=== PATIENT | female | born 1945 | race Caucasian/White ===

== ENCOUNTER → 2017-04-02 | Outpatient (CLI) | payer OTHER ==
[~2017-04-02] MED LIST: ANT PO; ATOR-24 PO; ATV5X PO; CALC500C3 PO; CHOL2000 PO; CLR10 PO; FSMD/70 PO; GABA-112 PO; MAGN400T6 PO; METO25TA56 PO; MULT-506 PO; PARO1TAB27 PO; PRLSR20 PO; TRAM-10 PO; VITA400C15 PO; VITA400C49 PO
[2017-04-02 15:36] LABS: BASO % 0.6 %; BASO ABS # 0.04 K/uL (0-0.2); COMPLETE YES; IG% 0.1 %; LYMPH ABS # 1.26 K/uL (1.2-3.4); MEAN CELL VOLUME 93.3 fL (80-100); MEAN CORPUSCULAR HEMOGLOBIN 33.2 pg (25-34); MEAN CORPUSCULAR HGB CONC 35.6 g/dl (32-36); MEAN PLATELET VOLUME 10.3 fL (7.4-10.4); MONO % 6.4 %; NEUT % 71.9 %; PLATELET COUNT 225 K/uL (130-400); RED BLOOD COUNT 4.61 M/uL (4.2-5.4); WHITE BLOOD COUNT 7.01 K/uL (4.8-10.8)
[2017-04-02 15:45] LABS: PARTIAL THROMBOPLASTIN RATIO 1.1; PROTHROMBIN TIME (PATIENT) 10.5 SECONDS (9.0-12.0)
[2017-04-02 16:12] LABS: BLOOD UREA NITROGEN 22 mg/dl (7-18); BUN/CREATININE RATIO 29.4 (10-20); CALCIUM 9.7 mg/dl (8.5-10.1); CARBON DIOXIDE 29 mmol/L (21-32); CHLORIDE 101 mmol/L (98-107); CREATININE 0.75 mg/dl (0.60-1.20); GLUCOSE 97 mg/dl (70-99); SODIUM 140 mmol/L (136-145)
--- NOTE | 2017-04-02 16:16 | DIAGNOSTIC IMAGING REPORT ---
CHEST 2 VIEWS ROUTINE CLINICAL HISTORY: 71 years-old Female presenting with PRE OP TESTING, WENT TO LAB FIRST, SEND TO [facility]. TECHNIQUE: PA and lateral views of the chest were obtained. COMPARISON: 10/26/[address] from 10/05/2015. FINDINGS: Cardiomediastinal silhouette normal. Lungs and pleural spaces clear. Deformities of several anterior lower left ribs consistent with old fractures. Surgical clips project over the epigastrium. IMPRESSION: 1. No acute cardiopulmonary disease. Electronically signed by: Moses Champion M.D. 04/02/2017 4:14 PM Dictated Date/Time: 04/02/2017 4:13 PM
[2017-04-02 16:32] LABS: URINE APPEARANCE CLEAR (CLEAR); URINE BILIRUBIN NEG (NEG); URINE COLOR YELLOW; URINE NITRITE NEG (NEG); URINE SPECIFIC GRAVITY 1.027 (1.000-1.030); UROBILINOGEN NEG (NEG)
[2017-04-02 16:35] LABS: MANUAL MICROSCOPIC REQUIRED? NO; REVIEW REQ? NO
== END | disposition home or self-care (01) ==
LOC: C.LAB 14:45
PROVIDERS: ATTEND Physician Assistant
DX: Z01.812 Encounter for preprocedural laboratory examination (principal); Z01.810 Encounter for preprocedural cardiovascular examination

== ENCOUNTER 2017-04-08 06:49 | Observation (INO) | payer OTHER ==
[2017-04-04 08:20] VITALS: BMI 21.0
--- NOTE | 2017-04-05 12:29 | HISTORY & PHYSICAL EXAMINATION ---
DATE OF ADMISSION: 04/08/2017 PREOPERATIVE DIAGNOSIS: Left femur fracture. POSTOPERATIVE DIAGNOSIS: Same. HISTORY OF PRESENT ILLNESS: Evonne is a delightful patient. She has battled left femoral pain now for about 1.5 years. The Fosamax that she was taking led to a fracture of the femur. She has no fever, sweats, chills, moderate pain that has not subsided. She is a high potential but a complete fracture through the femoral shaft. PAST MEDICAL HISTORY: Arthritis, sciatica. No carcinoma. No kidney, liver issues. No hypertension, no COPD. MEDICATIONS: Metoprolol, Zocor, lorazepam, tramadol. PAST SURGICAL HISTORY: Hysterectomy, lumbar spine, cholecystectomy. ALLERGIES: Negative. REVIEW OF SYSTEMS: Denies any blurred vision, double vision, tinnitus, vertigo. Did have some teeth issues. Denies chest pain, palpitations. Denies shortness of breath, asthma, wheezing. No nausea, vomiting, urgency, frequency, dysuria. Her major complaints is musculoskeletal, left femur pain. OBJECTIVE: GENERAL: She is alert, oriented young lady. She is 5 feet 6 inches, 130 pounds. She is in no distress. VITAL SIGNS: Blood pressure 130/80, pulse of 80. HEENT: Normal. CARDIAC: Normal S1, S2, no S3. LUNGS: Clear. ABDOMEN: Soft, nontender. SKIN: Intact. Vascular structures intact. Images demonstrate a stress fracture, left femur. IMPRESSION: Otherwise, healthy young lady with a stress fracture, left femur. DISPOSITION: Includes IM liborio, left femur under general anesthetic at [facility].
[2017-04-08] VITALS (9 sets, daily range): BP systolic 88–138; BP diastolic 55–79; PULSE 59–102; TEMP 36.4–37.1; O2SAT 95–100; Ht 160 cm; Wt 54.5 kg
[~2017-04-08] VITALS: Ht 160 cm; Wt 54.5 kg
[~2017-04-08 06:49] MED LIST changes: -CALC500C3 PO; +CEFAZOLIN 2000MG IV PUSH 10 ML IV SCH; -FSMD/70 PO; +LACTATED RINGER'S 1000ML 1,000 ML IV SCH; +NSS 1000ML IV SCH; -VITA400C15 PO
[2017-04-08] MEDS ORDERED: BUPIVACAINE 0.5 % 5 MG/1 ML PF 10ML VIAL ONE (07:15)
[2017-04-08] MEDS ORDERED: CALC500C3 PO (07:54)
[2017-04-08] MEDS ORDERED: FENTANYL CITRATE INJ 50 MCG/1 ML 2 ML VIAL ONE (08:40)
[2017-04-08] MEDS ORDERED: MIDAZOLAM HCL 1 MG/ML 2ML VIAL ONE ×2 (08:40→09:25)
[2017-04-08] MEDS ORDERED: ATROPINE SULFATE 0.1 MG/ML 5ML SYR IV PRN (09:00)
[2017-04-08] MEDS ORDERED: HYDROmorphone INJ 1 MG/ML SYR IV PRN ×2 (09:00→19:45)
[2017-04-08] MEDS ORDERED: LABETALOL HCL IV 5 MG/ML 20ML IV PRN (09:00)
[2017-04-08] MEDS ORDERED: MEPERIDINE HCL 25 MG/ML CARP IV PRN (09:00)
[2017-04-08] MEDS ORDERED: ONDANSETRON INJ 2 MG/ML 2 ML VIAL IV PRN ×2 (09:00→11:30)
[2017-04-08] MEDS ORDERED: FENTANYL CITRATE INJ 50 MCG/1 ML 2 ML VIAL IV PRN (09:00)
[2017-04-08] MEDS ORDERED: EpHEDrine SULFATE INJ 50 MG/ML AMP IV PRN (09:00)
--- NOTE | 2017-04-08 09:18 | History & Physical Bridge Note ---
H&P Re-Evaluation Bridge Note: I have examined the patient, reviewed the History & Physical and in the interval since the performance of the History & Physical I have noted the following changes of clinical significance: No changes noted
[2017-04-08] MEDS ORDERED: BUPIVACAINE/EPINEPHRINE 0.5% MPF 1:200,000 30 ML VIAL ONE (09:26)
--- NOTE | 2017-04-08 11:22 | [facility] Post Operative Brief Note ---
Immediate Operative Summary Operative Date Apr 08, 2017. Pre-Operative Diagnosis Stress Fracture, Left Femur Post-Operative Diagnosis Stress Fracture, Left Femur Procedure(s) Performed Left Femur Trochanteric Fixation Nail Surgeon Dr. Jordan Castanon Vegetable Inspector Surgeon(s) Santana Villalpando PA-C Estimated Blood Loss 250mL Findings femur fracture Specimens none per surgeon Complication(s) None Disposition Recovery Room / PACU
[2017-04-08] MEDS ORDERED: LIDOCAINE HCL 2% 2 ML VIAL (20MG/ML) ONE (11:26)
[2017-04-08] MEDS ORDERED: PROPOFOL IV EMULSION 10 MG/ML 20 ML VIAL IV ONE (11:26)
--- NOTE | 2017-04-08 11:47 | OPERATIVE REPORT ---
DATE OF OPERATION: 04/08/2017 PREOPERATIVE DIAGNOSIS: Left femur fracture. POSTOPERATIVE DIAGNOSIS: Same. PROCEDURE: IM rodding, left femur. SURGEON: Dr. Castanon. EEG TECHNOLOGIST: Gus Villalpando PA-C. COMPLICATIONS: Zero. BLOOD LOSS: 250. ANESTHETIC: Spinal. DESCRIPTION OF PROCEDURE: The patient was taken to the operating room, spinal anesthetic provided to the patient, placed up on the traction, fracture table. I placed under longitudinal traction protecting all extremities protecting her eyes. We scrubbed, prepped, draped sterile. We engaged the tip of the greater trochanter with a guide wire passes down past the lesser trochanter. We then reamed and put a large guidewire down towards the knee, was nicely placed both AP and lateral radiographs. We then reamed up to a size 12, selected a size 11 nail. The fit was near anatomic. We completely stabilized the femoral fracture. We locked the liborio into place, irrigated thoroughly, closed in layers. Sterile dressings applied. The patient returned to recovery room satisfactory and stable. No apparent intraoperative complications. Sponge and needle count correct at the close. Implants used by the [employer]. I attest to the content of the Intraoperative Record and any orders documented therein. Any exception s are noted below.
[2017-04-08 12:10] LABS: HEMATOCRIT 35.8 % (37-47); MEAN CELL VOLUME 94.5 fL (80-100); MEAN CORPUSCULAR HEMOGLOBIN 31.4 pg (25-34); MEAN CORPUSCULAR HGB CONC 33.2 g/dl (32-36); MEAN PLATELET VOLUME 10.5 fL (7.4-10.4); PLATELET COUNT 159 K/uL (130-400); RED BLOOD COUNT 3.79 M/uL (4.2-5.4)
--- NOTE | 2017-04-08 12:11 | DIAGNOSTIC IMAGING REPORT ---
L HIP OR FILMS CLINICAL HISTORY: LEFT FEMUR TROCH NAIL FLUOROSCOPY TIME: 1 minute and 5 seconds. FINDINGS: 3 fluoroscopic spot images of the left hip. Partially visualized intramedullary liborio within the proximal left femur within interlocking femoral neck pin. The hardware appears intact. IMPRESSION: Fluoroscopy provided for postoperative changes within the left hip as described above. The hardware appears intact. Electronically signed by: Arsenio Butler M.D. 04/08/2017 12:10 PM Dictated Date/Time: 04/08/2017 12:09 PM
--- NOTE | 2017-04-08 12:41 | Anesthesiology Progress Note ---
Anesthesia Post Op Note Date & Time Apr 08, 2017 at 12:41 Vital Signs Pain Intensity: 0 Vital Signs Past 12 Hours Date Time Temp Pulse Resp B/P (MAP) Pulse Ox O2 Delivery O2 Flow Rate FiO2 04/08/17 12:05 60 20 97/63 98 Nasal Cannula 3 04/08/17 11:55 62 20 92/57 97 Nasal Cannula 3 04/08/17 11:45 36.2 67 20 90/53 98 Nasal Cannula 3 04/08/17 11:35 65 20 100/62 94 Nasal Cannula 3 04/08/17 11:25 66 20 99/71 96 Oxymask 10 04/08/17 11:19 36.5 64 20 109/72 96 Oxymask 10 04/08/17 07:42 36.6 64 16 138/75 96 Room Air Notes Mental Status: alert / awake / arousable, participated in evaluation Pt Amnestic to Procedure: Yes Nausea / Vomiting: adequately controlled Pain: adequately controlled Airway Patency, RR, SpO2: stable & adequate BP & HR: stable & adequate Hydration State: stable & adequate Neuraxial Anesthesia: was administered, sensory block is resolving Anesthetic Complications: no major complications apparent
[2017-04-08] MEDS: SODIUM CHLORIDE 0.9% 1000ML 1,000 ML IV SCH (13:42)
[2017-04-08] MEDS: OXYCODONE/ACETAMINOPHEN 5-325 TAB PO PRN (15:40)
[2017-04-08] MEDS: CEFAZOLIN IV 1,000 MG in SYRINGE 0 ML IV SCH (16:22)
[2017-04-08] MEDS ORDERED: IV FLUIDS COMPLETED PRN (17:00)
[2017-04-08] MEDS ORDERED: NURSING VERBAL MED ORDER ONE (19:15)
[2017-04-08] MEDS ORDERED: PROMETHAZINE HCL INJ 25 MG in SODIUM CHLORIDE 0.9% 50ML 50 ML IV PRN (19:45)
[2017-04-08] MEDS ORDERED: HYDROmorphone HCL 2 MG TAB PO PRN (19:45)
[2017-04-08] MEDS: ASPIRIN/ALUM/MAGNES/CAL CARB 325 MG TAB PO SCH (22:00)
[2017-04-09] MEDS: CEFAZOLIN IV 1,000 MG in SYRINGE 0 ML IV SCH (00:01)
[2017-04-09] MEDS: OXYCODONE/ACETAMINOPHEN 5-325 TAB PO PRN ×2 (00:09→07:53)
[2017-04-09] MEDS: SODIUM CHLORIDE 0.9% 1000ML 1,000 ML IV SCH (01:17)
[2017-04-09 03:46] VITALS: BP 80/46; PULSE 77; TEMP 36.4; O2SAT 99
[2017-04-09 04:39] VITALS: BP 89/53
[2017-04-09] MEDS ORDERED: CEFAZOLIN IV 1,000 MG in DEXTROSE 5% 50ML 50 ML IV SCH (06:00)
[2017-04-09 07:04] VITALS: BP 92/58; PULSE 84; TEMP 37; O2SAT 96
[2017-04-09] MEDS ORDERED: ASPI325T39 PO ×2 (07:37→07:45)
--- NOTE | 2017-04-09 07:40 | Discharge Instructions ---
Discharge Instructions Date of Service Apr 09, 2017. Admission Reason for Admission: Left Femur Fracture Discharge Discharge Diagnosis / Problem: same Discharge Goals Goal(s): Improve function Activity Recommendations Activity Limitations: as noted below Lifting Limitations: gradually increase as tolerated Exercise/Sports Limitations: until after follow-up appointment Shower/Bathe: keep incision dry Weightbearing Status: Left weightbearing weight bearing as tolerated with walker . Instructions / Follow-Up Instructions / Follow-Up home ,rest , follow up . regular meds to continue, has ultram at home Current Hospital Diet Patient's current hospital diet: Clear Liquid Diet Discharge Diet Recommended Diet: Regular Diet Procedures Procedures Performed: Left Femur Trochanteric Fixation Nail Pending Studies Studies pending at discharge: no Medical Emergencies . Who to Call and When: Medical Emergencies: If at any time you feel your situation is an emergency, please call 911 immediately. . Non-Emergent Contact Non-Emergency issues call your: Surgeon . "Provider Documentation" section prepared by Reginald Castanon. . VTE Core Measure Inpt VTE Proph given/why not?: Other Anticoagulation (Aspirin)
--- NOTE | 2017-04-09 07:48 | Anesthesiology Progress Note ---
Anesthesia Post Op Note Date & Time Apr 09, 2017 at 07:47 Vital Signs Vital Signs Past 12 Hours Date Time Temp Pulse Resp B/P (MAP) Pulse Ox O2 Delivery O2 Flow Rate FiO2 04/09/17 07:04 37.0 84 16 92/58 (69) 96 Room Air 04/09/17 04:39 89/53 (65) 04/09/17 03:46 36.4 77 15 80/46 (57) 99 Nasal Cannula 1.0 04/09/17 00:10 Nasal Cannula 1.0 04/08/17 23:03 37.1 102 17 96/64 (75) 95 Nasal Cannula 1.0 04/08/17 21:34 36.6 72 16 92/64 (73) 97 Nasal Cannula 2.0 Notes Mental Status: alert / awake / arousable, participated in evaluation Pt Amnestic to Procedure: Yes Nausea / Vomiting: adequately controlled Pain: adequately controlled Airway Patency, RR, SpO2: stable & adequate BP & HR: stable & adequate Hydration State: stable & adequate Neuraxial Anesthesia: sensory block resolved Anesthetic Complications: no major complications apparent
--- NOTE | 2017-04-09 07:51 | DISCHARGE SUMMARY ---
SUBJECTIVE: Alert, oriented, minimal complaints of pain. OBJECTIVE: Vital signs stable, ambulatory to the bathroom. ASSESSMENT: Intramedullary rodding, left femur, stable. DISPOSITION: Includes home rest today, walker for support. She is allowed weightbearing as tolerated with the walker but be careful. Keep the wound clean and dry. She can continue her home medications of which she has tramadol at home along with gabapentin. I have added aspirin adult 325 daily, take 1 for 30 days. I should see her back in the office in approximately 10 days for suture removal. Please call if there are problems.
[2017-04-09] MEDS: ASPIRIN/ALUM/MAGNES/CAL CARB 325 MG TAB PO SCH (09:39)
[2017-04-09 11:07] VITALS: BP 92/58; PULSE 84; TEMP 37; O2SAT 96
== END 2017-04-09 11:40 | disposition home or self-care (01) ==
LOC: C.ACU 06:49 → C.3E 11:27 → EDBEDREQ 11:28 → ENRESERV 11:54
PROVIDERS: ADMIT Orthopaedic Surgery Orthopaedic Surgery of the Spine; ATTEND Orthopaedic Surgery Orthopaedic Surgery of the Spine
DX: M84.652A Pathological fracture in other disease, left femur, initial encounter for fracture (principal); T45.8X5A Adverse effect of other primarily systemic and hematological agents, initial encounter; M54.30 Sciatica, unspecified side; M19.90 Unspecified osteoarthritis, unspecified site; Z79.899 Other long term (current) drug therapy; X58.XXXA Exposure to other specified factors, initial encounter